=== PATIENT | female | born 1970 | race Caucasian/White ===

== ENCOUNTER 2022-03-22 16:11 | Outpatient (REF) | payer BC, SELFPAY ==
--- NOTE | ~2022-03-22 | MM_ITS ---
EXAMINATION: MM SCREENING DIGITAL BREAST TOMOSYNTHESIS, BILATERAL CLINICAL INFORMATION: Screening. Asymptomatic. The lifetime risk of breast cancer based on the Tyrer-Cuzick Model is 7.1%. COMPARISON: Mammography: 09/03/2021 and studies dating back to 08/29/2016. TECHNIQUE: Digital breast tomosynthesis is performed in both the craniocaudal and mediolateral oblique views along with computer-aided detection (CAD). Synthesized 2D images are generated from the tomosynthesis. FINDINGS: The breasts are heterogeneously dense, which may obscure small masses (ACR BI-RADS breast composition Category c). There is a stable parenchymal pattern of the left breast. Within the upper outer aspect of the right breast, approximately 8 cm from the nipple, there is some asymmetric dense parenchyma with some calcifications present for which spot magnification views are recommended in 90 degree mediolateral and craniocaudal projections. MM/MM tomosynthesis screening BI IMPRESSION: Right breast density with calcifications for further evaluation. ASSESSMENT: BI-RADS 0: Incomplete - Need additional imaging evaluation. RECOMMENDATION: 1. Additional views of the right breast. 2. Targeted ultrasound if warranted after review of the additional views. 3. Radiology department staff will contact the patient for additional imaging. This patient's information was entered into a reminder system with a target due date for their next mammogram.
== END 2022-03-22 16:12 | disposition home or self-care (01) ==
LOC: HO.MAMMO 16:11
PROVIDERS: PCP Internal Medicine; Visit Provider Nurse Practitioner Adult Health
DX: Z12.31 Encounter for screening mammogram for malignant neoplasm of breast (principal)
CPT/HCPCS: 77063; 77067

== ENCOUNTER 2022-04-08 08:21 | Outpatient (REF) | payer BC, SELFPAY ==
--- NOTE | ~2022-04-08 | MM_ITS ---
EXAMINATION: MM DIAGNOSTIC DIGITAL MAMMOGRAPHY, RIGHT CLINICAL INFORMATION: Recent screening mammogram notes calcifications upper outer right breast for additional evaluation with magnification views. Calcifications are under surveillance from outside facility. COMPARISON: Mammography: 03/22/2022; outside mammography 09/03/2021 (BI-RADS 3), 02/19/2021, 02/14/2021 (BI-RADS 0), 12/22/2017 ([facility]) TECHNIQUE: Digital mammography is performed in the following views: Magnification CC, magnification ML. FINDINGS: There are scattered areas of fibroglandular density (ACR BI-RADS breast composition Category b). Breast tissue composition borders on heterogeneously dense. There is no underlying mass or architectural abnormality. No developing density from prior outside studies. The calcifications for follow-up are increased in number from prior outside diagnostic exams and new since prior outside mammography 2018. Calcifications are predominantly finding and round and loosely grouped in two close areas. Results are discussed with the patient at time of visit. The calcifications are increased in number and new since 2018. Stereotactic sampling is suggested. Patient is in agreement. MM/MM added views RT IMPRESSION: -Calcifications for follow-up are increased in number from prior outside diagnostic exams. -No developing density or interval mass or architectural abnormality. ASSESSMENT: BI-RADS 4: Suspicious (subcategory 4A: Low suspicion for malignancy) RECOMMENDATION: Stereotactic sampling right breast calcifications upper outer quadrant. This patient's information was entered into a reminder system with a target due date for their next mammogram.
== END 2022-04-08 08:22 | disposition home or self-care (01) ==
LOC: HO.MAMMO 08:21
PROVIDERS: PCP Nurse Practitioner Adult Health; Visit Provider Nurse Practitioner Adult Health
DX: R92.1 Mammographic calcification found on diagnostic imaging of breast (principal)
CPT/HCPCS: 77065

== ENCOUNTER 2022-04-10 07:50 | Outpatient (REF) | payer BC, SELFPAY ==
--- NOTE | ~2022-04-10 | MM_ITS ---
EXAMINATION: STEREOTACTIC TOMOSYNTHESIS-GUIDED VACUUM-ASSISTED BREAST BIOPSY, RIGHT SPECIMEN RADIOGRAPH, RIGHT POST PROCEDURE DIGITAL MAMMOGRAM, RIGHT CLINICAL INFORMATION: Indeterminate calcifications upper outer quadrant of the right breast. COMPARISON: 04/08/2022 and studies dating back to 12/22/2017. TECHNIQUE/PROCEDURE: Informed consent was obtained from the patient after discussion of the benefits, risks, and alternatives to biopsy today. Patient appeared to understand. Gave opportunity for questions. Patient signed consent form. BIOPSY TABLE: [employer] Aff[employer]one Biopsy System. LESION: Grouping of calcifications about the upper outer aspect of the right breast. LOCAL ANESTHESIA: 16 mL 1% lidocaine; 20 mL 1% lidocaine with epinephrine. DERMATOTOMY: Single skin lex dermatotomy performed. NEEDLE: [employer] 9-gauge vacuum assisted core biopsy device. APPROACH: Craniocaudal. TARGETING: Digital breast tomosynthesis used for targeting. CORES: 18. CLIP: [employer] T-shaped marker. SPECIMEN RADIOGRAPH: Specimen radiograph is taken in separate room using digital mammography. The index calcifications are in the excised cores. There also appears to be a segment of calcified vessel. POST PROCEDURE UNILATERAL DIGITAL MAMMOGRAM: The post biopsy mammogram is performed in separate room using separate digital mammography equipment from the biopsy procedure. 2 views are obtained. There are scattered areas of fibroglandular density (breast composition category: b). The clip marker is in position. The calcifications are markedly decreased at the biopsy site. There is a small hematoma present and manual compression was held by the technologist and myself for approximately one-half hour postprocedure with no evidence of enlarging hematoma. The patient tolerated the procedure well. Home instructions reviewed with the patient. Final pathology results are pending. MM/MM stereotactic biopsy RT IMPRESSION: 1. Digital tomosynthesis-guided core biopsy right breast with clip placement. 2. Specimen radiograph taken and post procedure mammogram. There is satisfactory positioning of the biopsy clip. 3. Final pathology results pending. An addendum report will be issued.
[2022-04-10] MEDS: Lidocaine HCl 1 % 20 ML VIAL 9 ML SUBCUT (11:35)
[2022-04-10] MEDS: Sodium Bicarbonate 8.4% 50 MEQ/50 ML VIAL SUBCUT (11:38)
== END 2022-04-10 07:51 | disposition home or self-care (01) ==
LOC: HO.MAMMO 07:50
PROVIDERS: PCP Nurse Practitioner Adult Health; Visit Provider Nurse Practitioner Adult Health
DX: R92.1 Mammographic calcification found on diagnostic imaging of breast (principal)
CPT/HCPCS: 19081; 88305; 88341; 88342

== ENCOUNTER 2022-10-10 14:49 | Outpatient (REF) | payer BC, SELFPAY ==
--- NOTE | ~2022-10-10 | MM_ITS ---
EXAMINATION: MM DIAGNOSTIC DIGITAL BREAST TOMOSYNTHESIS, RIGHT CLINICAL INFORMATION: Benign stereotactic biopsy right breast 04/10/2022 for calcifications. Small focus atypical lobular hyperplasia within specimen, surrounded by normal breast tissue. Other calcifications for short interval follow-up. COMPARISON: Mammography: 04/10/2022, 04/08/2022, 03/22/2022. Outside mammography 09/03/2021, 02/19/2021, 02/14/2021 TECHNIQUE: Digital breast tomosynthesis is performed in both the craniocaudal and mediolateral oblique views along with computer-aided detection (CAD). Synthesized 2D images are generated from the tomosynthesis. Additional magnification right CC and magnification right ML views are obtained. FINDINGS: There are scattered areas of fibroglandular density (ACR BI-RADS breast composition Category b). There is a biopsy clip marker posterior upper outer quadrant. The hematoma immediate post biopsy is substantially decreased in size. There is no significant mass or architectural abnormality. Intramammary node again noted mid 9:30 position. The remaining punctate calcifications posterior upper outer right breast inferior central to the biopsy clip marker appears stable from prior diagnostic mammography 04/08/2022. Continued surveillance is recommended. Results are discussed with the patient at time of visit. MM/MM tomosynthesis diagnostic RT IMPRESSION: -Post stereotactic biopsy hematoma substantially decreased. -Residual calcifications not sampled under surveillance are stable from prior diagnostic exam 04/10/2022. ASSESSMENT: BI-RADS 3: Probably Benign RECOMMENDATION: Diagnostic mammography with right magnification views at time of annual bilateral mammography, due in 6 months. This patient's information was entered into a reminder system with a target due date for their next mammogram.
== END 2022-10-10 14:50 | disposition home or self-care (01) ==
LOC: HO.MAMMO 14:49
PROVIDERS: PCP Nurse Practitioner Adult Health; Visit Provider Surgery
DX: R92.1 Mammographic calcification found on diagnostic imaging of breast (principal)
CPT/HCPCS: 77061; 77065

== ENCOUNTER → 2022-11-28 14:57 | Outpatient (BNVA) | payer BC, SELFPAY | PROVIDERS: PCP Nurse Practitioner Adult Health; Visit Provider Surgery ==

== ENCOUNTER 2023-04-23 08:52 | Outpatient (REF) | payer BC, SELFPAY ==
--- NOTE | ~2023-04-23 | MM_ITS ---
EXAMINATION: MM DIAGNOSTIC DIGITAL BREAST TOMOSYNTHESIS, BILATERAL CLINICAL INFORMATION: The patient had a stereotactic biopsy showing fibrocystic changes and calcium oxalate crystals followed which are benign this biopsy was performed in April 2022. Per the pathology report, a small focus of atypical lobular hyperplasia, unassociated with calcifications was noted. Atypical lobular hyperplasia has no imaging counterpart and this is an incidental microscopic finding. The patient presents for recommended diagnostic evaluation of the right breast with magnification imaging of the biopsy bed and for annual screening of the left breast. COMPARISON: Mammography: This study is compared with prior mammograms dating back to 2018. TECHNIQUE: Digital breast tomosynthesis is performed in both the craniocaudal and mediolateral oblique views along with computer-aided detection (CAD). Synthesized 2D images are generated from the tomosynthesis. A full lateral view of the right breast and magnification imaging of the upper outer quadrant of the right breast in the CC and lateral projections was performed. FINDINGS: There are scattered areas of fibroglandular density (ACR BI-RADS breast composition Category b). There are no significant masses, abnormal calcifications, or other abnormalities. There is a tissue marker in the upper outer quadrant of the right breast from the prior benign stereotactic biopsy. There are loosely grouped calcifications in the upper outer quadrant of the right breast, layering in the lateral projection. The this is treasury representative of milk of calcium. There are no suspicious calcifications in the right breast. There are no mammographic signs of malignancy of the left breast. MM/MM tomosynthesis diagnostic BI IMPRESSION: No mammographic evidence of malignancy. ASSESSMENT: BI-RADS BI-RADS 2 - Benign Findings RECOMMENDATION: 1 year F/U Results were provided to the patient at time of visit by the technologist. This patient's information was entered into a reminder system with a target due date for their next mammogram.
== END 2023-04-23 08:53 | disposition home or self-care (01) ==
LOC: HO.MAMMO 08:52
PROVIDERS: PCP Nurse Practitioner Adult Health; Visit Provider Surgery
DX: R92.1 Mammographic calcification found on diagnostic imaging of breast (principal)
CPT/HCPCS: 77062; 77066

== ENCOUNTER → 2023-04-23 09:00 | Outpatient (BNV) | payer BC, SELFPAY | PROVIDERS: PCP Nurse Practitioner Adult Health; Visit Provider Radiology Diagnostic Radiology | DX: R92.1 Mammographic calcification found on diagnostic imaging of breast (principal); R92.323 Mammographic fibroglandular density, bilateral breasts | CPT/HCPCS: 77062; 77066 ==

== ENCOUNTER 2024-05-13 16:01 | Outpatient (REF) | payer BC, SELFPAY | END 2024-05-13 16:02 | disposition home or self-care (01) | LOC: HO.MAMMO 16:01 | PROVIDERS: PCP Nurse Practitioner Adult Health; Visit Provider Nurse Practitioner Adult Health | DX: Z12.31 Encounter for screening mammogram for malignant neoplasm of breast (principal) | CPT/HCPCS: 77063; 77067 ==

== ENCOUNTER → 2024-05-13 16:15 | Outpatient (BNV) | payer BC, SELFPAY | PROVIDERS: PCP Nurse Practitioner Adult Health; Visit Provider Internal Medicine | DX: Z12.31 Encounter for screening mammogram for malignant neoplasm of breast (principal) | CPT/HCPCS: 77063; 77067 ==

== ENCOUNTER → 2025-05-19 15:45 | Outpatient (BNV) | payer BC, SELFPAY | PROVIDERS: PCP Nurse Practitioner Adult Health; Referring Provider Internal Medicine; Visit Provider Internal Medicine | DX: Z12.31 Encounter for screening mammogram for malignant neoplasm of breast (principal) | CPT/HCPCS: 77063; 77067 ==

== ENCOUNTER 2025-05-19 15:47 | Outpatient (REF) | payer BC, SELFPAY | END 2025-05-19 15:48 | disposition home or self-care (01) | LOC: HO.MAMMO 15:47 | PROVIDERS: PCP Nurse Practitioner Adult Health; Referring Provider Internal Medicine; Visit Provider Nurse Practitioner Adult Health | DX: Z12.31 Encounter for screening mammogram for malignant neoplasm of breast (principal) | CPT/HCPCS: 77063; 77067 ==